=== PATIENT | female | born 1960 | race Caucasian/White ===

== ENCOUNTER → 2017-11-28 | Outpatient (CLI) | payer BC | END | disposition home or self-care (01) | LOC: CFH 07:46 | DX: Z12.31 Encounter for screening mammogram for malignant neoplasm of breast (principal) | CPT/HCPCS: 77067 ==

== ENCOUNTER 2018-07-21 12:05 | Emergency (ER) | payer BC ==
[~2018-07-21] VITALS: Ht 167.6 cm; Wt 67.4 kg
[2018-07-21 13:32] LABS: BASOPHILS # (AUTO) 0.11 x10^3/uL (0-0.1); BASOPHILS % (AUTO) 1 % (0-1); EOSINOPHILS # (AUTO) 0.34 x10^3/uL (0-0.4); EOSINOPHILS % (AUTO) 3 % (1-7); LYMPHOCYTES # (AUTO) 4.15 x10^3/uL (1-3.4); LYMPHOCYTES % (AUTO) 39 % (22-44); MD NO; MEAN CORPUSCULAR HEMOGLOBIN 34.1 pg (27.0-34.8); MEAN CORPUSCULAR HGB CONC 34.3 g/dL (32.4-35.8); MEAN CORPUSCULAR VOLUME 99.5 fL (80-100); MONOCYTES # (AUTO) 0.98 x10^3/uL (0.2-0.8); MONOCYTES % (AUTO) 9 % (2-9); NEUTROPHILS # (AUTO) 5.21 x10^3/uL (1.8-6.8); NEUTROPHILS % (AUTO) 48 % (42-75); PLATELET COUNT 324 x10^3/uL (130-400); RED BLOOD COUNT 4.66 x10^6/uL (3.82-5.3); RED CELL DISTRIBUTION WIDTH 14.3 % (9.6-15.2)
[2018-07-21 13:42] LABS: ANION GAP 7 mmol/L (5-15); CALCIUM 8.1 mg/dL (8.5-10.1); CHLORIDE 111 mmol/L (98-107)
[2018-07-21 13:43] LABS: ALBUMIN 3.4 g/dL (3.4-5.0)
[2018-07-21 14:26] VITALS: BP 125/61
[2018-07-21] MEDS ORDERED: KETOROLAC 30 MG/1 ML IVPush ONE (14:30)
[2018-07-21] MEDS ORDERED: KETOROLAC 30 MG/1 ML ONE (14:35)
[2018-07-21] MEDS ORDERED: BACITRACIN ZINC OINT 500U/GM, 0.9 GM ONE (14:36)
[2018-07-21] MEDS ORDERED: OMNIPAQUE 350 MG/ML, 75ML BOTTLE ONE (14:42)
== END 2018-07-21 16:07 ==
LOC: ED 15:50
DX: J01.01 Acute recurrent maxillary sinusitis (principal); J01.21 Acute recurrent ethmoidal sinusitis; Z88.5 Allergy status to narcotic agent
CPT/HCPCS: 36415; 70450; 70487; 80048; 82040; 85025; 93005; 96374; 99285; J1885; Q9967

== ENCOUNTER 2019-07-06 14:11 | Outpatient (CLI) | payer BC | END 2019-07-06 23:59 | disposition home or self-care (01) | LOC: CFH 14:11 | PROVIDERS: ATTEND Nurse Practitioner | DX: Z12.31 Encounter for screening mammogram for malignant neoplasm of breast (principal); M85.89 Other specified disorders of bone density and structure, multiple sites; Z78.0 Asymptomatic menopausal state | CPT/HCPCS: 77063; 77067; 77080 ==

== ENCOUNTER 2020-12-29 19:05 | Emergency (ER) | payer BC ==
[~2020-12-29] VITALS: Ht 165.1 cm; Wt 67.3 kg
--- NOTE | 2020-12-29 19:25 | NUR ---
PT AMBULATED TO ROOM. HAS LEFT WRIST SPLINTED, AND C/O PAIN TO LEFT WRIST. VISIBLE DEFORMITY. XRAYS ORDERED, AND PAIN MEDS GIVEN TO PT, VIA IM, PER EMAR.
[2020-12-29] MEDS ORDERED: HYDROmorphone 1 MG/ML, 1ML INJ IM ONE ×2 (19:30→21:00)
[2020-12-29] MEDS ORDERED: HYDROmorphone 1 MG/ML, 1ML INJ ONE ×2 (19:33→20:38)
[2020-12-29] MEDS ORDERED: LIDOCAINE-MPF 2% ,5ML ONE (20:19)
[2020-12-29] MEDS ORDERED: LIDOCAINE 2%, 10ML INFIL ONE (20:30)
--- NOTE | 2020-12-29 20:32 | NUR ---
PA TO BEDSIDE,AFTER PT UP TO BATHROOM. LIDOCAINE 2% TO BEDSIDE, WITH SPLINT CART, AND PA AND TECHS AT BEDSIDE TO REDUCE FRACTURE TO LEFT FOREARM. PT A&OX4, NO ACUTE DISTRESS.
--- NOTE | 2020-12-29 20:41 | NUR ---
PA AT BEDSIDE PLACING FRACTURE IN PLACE FOR A SPLINT. PT IN A LOT OF PAIN, AND 1MG DILAUDID ADDITIONALLY ORDERED IM. PT MEDICATED AND IM SHOT GIVEN TO LEFT DELTOID MUSCLE, AND SHE TOLERATED WELL.
[2020-12-29 20:46] VITALS: BP 138/76
--- NOTE | 2020-12-29 21:34 | NUR ---
PTS WRIST REDUCED TO PROPER PLACEMENT, CONFIRMED UNDER XRAY. PT TOLERATED WELL, AND MEDS GIVEN PER EMAR. POSITIVE CMS INTACT TO LEFT ARM. PT AMBULATORY AND IN NO PAIN AT THIS TIME.
== END 2020-12-29 21:41 | disposition home or self-care (01) ==
LOC: ED 21:18
DX: S52.572A Other intraarticular fracture of lower end of left radius, initial encounter for closed fracture (principal); F10.10 Alcohol abuse, uncomplicated; Z90.89 Acquired absence of other organs; F17.210 Nicotine dependence, cigarettes, uncomplicated; W01.0XXA Fall on same level from slipping, tripping and stumbling without subsequent striking against object, initial encounter; Y93.89 Activity, other specified; Y92.098 Other place in other non-institutional residence as the place of occurrence of the external cause; Y99.8 Other external cause status; Y90.0 Blood alcohol level of less than 20 mg/100 ml
CPT/HCPCS: 25605; 73100; 73110; 99284; J1170; J2001; 99283